=== PATIENT | male | born 1955 | race Caucasian/White ===

== ENCOUNTER 2018-02-17 13:57 | Emergency (ER) | payer MEDICARE ==
[~2018-02-17] VITALS: Ht 185.4 cm; Wt 85.8 kg
[2018-02-17 14:04] VITALS: Ht 185.4 cm; Wt 85.8 kg
[2018-02-17] MEDS ORDERED: IBUPROFEN 600 MG TAB PO ONE (17:00)
[2018-02-17] MEDS ORDERED: IOHEXOL 300MG/ML 150 ML BTL ONE (17:08)
[2018-02-17] MEDS ORDERED: SOD CHLORIDE 0.9% 100 ML ONE (17:08)
[2018-02-17] MEDS ORDERED: LORAZEPAM 0.5 MG TAB PO ONE (18:00)
--- NOTE | 2018-02-17 18:55 | ERD ---
ER Documentation Chief Complaint Chief Complaint LRQ AP, lethargy, NG, body aches, flu symptoms X 2 days HPI 62-year-old male presents with multiple complaints. Over the last 2 days, after drinking coffee, patient states he has had n onspecific body aches, lethargy and flulike symptoms. He reports no specific fever, cough or sputum production, only body aches and myalgias. He has no specific abdominal pain. He reports cramps in his legs as well. He reports no vomiting but does feel nauseous and occasionally reports loose stool with no bloody diarrhea. ROS All systems reviewed and are negative except as per history of present illness. Medications Home Meds No Active Prescriptions or Reported Meds Allergies Allergies: Coded Allergies: No Known Allergy (Unverified , 02/17/18) PMhx/Soc Hx Cardiac Disorders: Yes (HTN) Hx Alcohol Use: Yes (occasionally) Hx Substance Use: No Hx Tobacco Use: Yes Smoking Status: Former smoker FmHx Noncontributory for chief complaint Physical Exam Vitals Vital Signs Date Temp Pulse Resp B/P (MAP) Pulse Ox O2 O2 Flow FiO2 Time Delivery Rate 02/17/18 99.1 92 18 130/80 97 14:04 (97) Physical Exam GENERAL: The patient is well developed and appropriate for usual state of health in no apparent distress HEENT: Pupils equal, round, and reactive to light. EOMI. There is no scleral icterus. NECK: C-spine is soft and supple, there is no meningismus. There is no cervical lymphadenopathy. LUNGS: Clear to auscultation bilaterally. There are no rales, wheezes or rhonchi. HEART: Regular rate and rhythm, no murmurs, clicks, rubs or gallops. ABDOMEN: Soft, non-tender, non-distended. There are bowel sounds in all four quadrants. No rebound or guarding. No pulsatile abdominal mass EXTREMITIES: There is no peripheral cyanosis or edema. No focal swelling or erythema. NEURO: The patient moves all four extremities with 5/5 strength. Cranial nerves II - XII are intact. Normal gait. Alert and oriented SKIN: There is no apparent rash or petechiae. HEME/LYMPHATIC: There is no evidence of excessive bruising or lymphedema. PSYCHIATRIC: The patient does not appear anxious or depressed. Result Diagram: 02/17/18 1614 02/17/18 1614 Results 24 hrs Laboratory Tests Test 02/17/18 16:14 02/17/18 17:10 White Blood Count 8.2 10^3/ul Red Blood Count 3.82 10^6/ul Hemoglobin 13.0 g/dl Hematocrit 39.0 % Mean Corpuscular Volume 102.1 fl Mean Corpuscular Hemoglobin 34.0 pg Mean Corpuscular Hemoglobin Concent 33.3 g/dl Red Cell Distribution Width 13.9 % Platelet Count 238 10^3/UL Mean Platelet Volume 9.9 fl Immature Granulocytes % 0.500 % Neutrophils % 69.0 % Lymphocytes % 21.8 % Monocytes % 7.4 % Eosinophils % 1.1 % Basophils % 0.2 % Nucleated Red Blood Cells % 0.0 /100WBC Immature Granulocytes # 0.040 10^3/ul Neutrophils # 5.6 10^3/ul Lymphocytes # 1.8 10^3/ul Monocytes # 0.6 10^3/ul Eosinophils # 0.1 10^3/ul Basophils # 0.0 10^3/ul Nucleated Red Blood Cells # 0.0 10^3/ul Sodium Level 141 mmol/L Potassium Level 4.0 mmol/L Chloride Level 103 mmol/L Carbon Dioxide Level 28 mmol/L Anion Gap 10 Blood Urea Nitrogen 13 mg/dl Creatinine 0.76 mg/dl Est Glomerular Filtrat Rate mL/min > 60 mL/min Glucose Level 99 mg/dl Calcium Level 9.8 mg/dl Total Bilirubin 0.2 mg/dl Direct Bilirubin 0.00 mg/dl Indirect Bilirubin 0.2 mg/dl Aspartate Amino Transf (AST/SGOT) 31 IU/L Alanine Aminotransferase (ALT/SGPT) 34 IU/L Alkaline Phosphatase 57 IU/L Troponin I < 0.012 ng/ml Total Protein 6.9 g/dl Albumin 4.2 g/dl Globulin 2.70 g/dl Albumin/Globulin Ratio 1.55 Lipase 79 U/L Urine Color STRAW Urine Clarity CLEAR Urine pH 6.0 Urine Specific Dante 1.004 Urine Ketones NEGATIVE mg/dL Urine Nitrite NEGATIVE mg/dL Urine Bilirubin NEGATIVE mg/dL Urine Urobilinogen NEGATIVE mg/dL Urine Leukocyte Esterase NEGATIVE Sanjay/ul Urine Hemoglobin NEGATIVE mg/dL Urine Glucose NEGATIVE mg/dL Urine Total Protein NEGATIVE mg/dl Current Medications Medications Dose Sig/Rosey Start Time Status Last (Trade) Ordered Route PRN Stop Time Admin Dose Reason Admin Ibuprofen 600 mg ONCE ONCE 02/17/18 DC 02/17/18 (Motrin) PO 17:00 02/17/18 16:52 17:01 IV Flush 10 ml STK-MED 02/17/18 DC (NS 10 ml) ONCE .ROUTE 17:08 02/17/18 17:09 Sodium 100 ml @ ud STK-MED 02/17/18 DC Chloride ONCE .ROUTE 17:08 02/17/18 17:09 Iohexol 150 ml STK-MED 02/17/18 DC (Omnipaque ONCE .ROUTE 17:08 02/17/18 300mg/ ml) 17:09 Lorazepam 1 mg ONCE ONCE 02/17/18 DC 02/17/18 (Ativan) PO 18:00 02/17/18 18:09 18:01 Procedures/MDM Patient was taken to a room, seen and evaluated. Comfort measures were initiated. Diagnostic tests were ordered and reviewed. 3 LEAD RHYTHM STRIP: Normal sinus rhythm without ectopy EK lead EKG reviewed by myself: Normal Sinus Rhythm Normal [place] and intervals No ST elevation, depression, or T wave inversion Impression: Normal EKG RADIOLOGY: Reviewed with the radiologist REEVALUATION: 1854: Diagnostic tests were appreciated and discussed with the patient. He remained well-appearing and nontoxic seemed appropriate for outpatient care. MEDICAL DECISION MAKIN-year-old male presents with a number of nonspecific symptoms. His diagnostic tests focused on the concerns of his abdominal aortic aneurysm which she knows to be stable at the same size as what was appreciated today. Patient shows no evidence of rupture of the aneurysm or leakage, no evidence of ischemia. He demonstrates no evidence of infection or significant elective light concerns. Overall, he appears to be clinically nontoxic and seems appropriate for outpatient care. Departure Diagnosis: Primary Impression: Abdominal aortic aneurysm Condition: Stable Patient Instructions: Abdominal Aortic Aneurysm (Stable) Additional Instructions: See your doctor for follow-up as discussed. Take a copy of your test results, if appropriate, to this follow-up visit. See your doctor or return here if your symptoms do not improve as expected. At any time, please return to the emergency department for any change or worse robin in her symptoms. MUKUND TRUJILLO Feb 17, 2018 18:55
[2018-02-17 19:19] VITALS: BP 121/74; PULSE 78; RESP 18
== END 2018-02-17 19:22 | disposition home or self-care (01) ==
LOC: E/R 13:57
DX: I71.4 Abdominal aortic aneurysm, without rupture (principal); I10 Essential (primary) hypertension; Z87.891 Personal history of nicotine dependence
CPT/HCPCS: 36415; 74177; 80053; 81003; 83690; 84484; 85025; 93005; 99285; Q9967